=== PATIENT | female | born 1980 | race African-American/Black ===

== ENCOUNTER 2020-04-14 21:14 | Emergency (ER) | payer OTHER ==
[~2020-04-14] VITALS: Ht 165.1 cm; Wt 86.2 kg
[2020-04-14 22:05] VITALS: BP 160/109
== END 2020-04-14 22:05 | disposition home or self-care (01) ==
LOC: M.ERS 21:14
DX: Z20.828 Contact with and (suspected) exposure to other viral communicable diseases (principal)